=== PATIENT | female | born 1945 | race African-American/Black ===

== ENCOUNTER 2020-11-03 20:43 | Emergency (ER) | payer MEDICARE ==
[~2020-11-03] VITALS: Ht 175.3 cm; Wt 87.0 kg
[2020-11-03] MEDS ORDERED: MORPHINE SULFATE 4 MG/ML CPJ (NOT FOR IM USE) IV ONE (22:30)
[2020-11-03] MEDS ORDERED: DIPHENHYDRAMINE 25MG CAPSULE PO ONE (22:30)
[2020-11-03] MEDS ORDERED: KETOROLAC 30MG/ML VIAL IV ONE (23:30)
[2020-11-04 00:30] VITALS: BP 152/99
== END 2020-11-04 00:59 | disposition home or self-care (01) ==
LOC: ER 20:43
DX: S83.92XA Sprain of unspecified site of left knee, initial encounter (principal); J45.909 Unspecified asthma, uncomplicated; I10 Essential (primary) hypertension; W01.0XXA Fall on same level from slipping, tripping and stumbling without subsequent striking against object, initial encounter; Y93.89 Activity, other specified; Y92.89 Other specified places as the place of occurrence of the external cause; Y99.8 Other external cause status
CPT/HCPCS: 73562; 73590; 96374; 99284; J1885